=== PATIENT | female | born 1950 | race Two or more races ===

== ENCOUNTER 2021-02-23 20:23 | Inpatient (IN) | payer MEDICARE, OTHER ==
[~2021-02-23] VITALS: Ht 160 cm; Wt 60.3 kg
--- NOTE | 2021-02-23 20:39 | NUR ---
pt bibra c/o generalized weakness x yesterday and right arm tingling. Pt aaox4 breathing evenly and unlabored. MD at bedside. Pt attached to monitor and pox. Pt skin warm and dry, neuro checks intact.Pt given blanket and call light. Will continue to monitor.
--- NOTE | 2021-02-23 20:40 | NUR ---
xray at bedside
--- NOTE | 2021-02-23 20:41 | NUR ---
SUSAN: [phone]
--- NOTE | 2021-02-23 20:42 | NUR ---
Note undone in EDM - 02/23/21 at 2114 by DA pt bibra c/o generalized weakness x yesterday and right arm tingling. Pt aaox4 breathing evenly and unlabored. MD at bedside. Pt attached to monitor and pox. Pt skin warm and dry, neuro checks intact.Pt given blanket and call light. Will continue to monitor.
--- NOTE | 2021-02-23 20:55 | NUR ---
lab at bedside
[2021-02-23] MEDS ORDERED: ONDANSETRON HCL/PF 4 MG/2 ML VIAL IVP ONE (21:00)
[2021-02-23] MEDS ORDERED: MORPHINE SULFATE INJ 2 MG/ML DISP.SYRIN IV ONE (21:00)
[2021-02-23] MEDS ORDERED: IV NS 0.9% 1,000 ML BAG IV ONE (21:00)
[2021-02-23] MEDS ORDERED: MORPHINE SULFATE INJ 2 MG/ML DISP.SYRIN ONE (21:01)
[2021-02-23] MEDS ORDERED: ONDANSETRON HCL/PF 4 MG/2 ML VIAL ONE (21:01)
--- NOTE | 2021-02-23 21:07 | NUR ---
taken to radiology
[2021-02-23 21:10] LABS: BASOPHILS % (AUTO) 0.9 % (0.0-2.0); EOSINOPHILS % (AUTO) 1.8 % (0.0-6.0); HEMATOCRIT 41 % (33-45); HEMOGLOBIN 13.8 g/dL (11.5-14.8); LYMPHOCYTES % (AUTO) 45.6 % (20.0-44.0); MEAN CORPUSCULAR HGB CONC 34 g/dl (31.0-36.0); MEAN CORPUSCULAR VOLUME 87 fL (82-100); MONOCYTES # (AUTO) 0.5 K/uL (0.1-1.30); MONOCYTES % (AUTO) 10.4 % (2.0-12.0); NEUTROPHILS # (AUTO) 1.8 K/uL (1.8-8.9); NEUTROPHILS % (AUTO) 41.3 % (43.0-81.0); PLATELET COUNT (AUTO) 264 K/uL (150-450); RED BLOOD CELL COUNT(AUTO) 4.66 MIL/uL (4.0-5.2); WHITE BLOOD COUNT (AUTO) 4.4 K/uL (4.3-11.0)
[2021-02-23 21:23] LABS: ALBUMIN 3.6 g/dL (3.4-5.0); BILIRUBIN,DIRECT 0.1 mg/dL (0.0-0.2); BILIRUBIN,TOTAL 0.3 mg/dL (0.2-1.0); TOTAL PROTEIN, SERUM 8.1 g/dL (6.4-8.2)
[2021-02-23 21:32] LABS: CALCIUM, SERUM 8.7 mg/dL (8.5-10.1); CARBON DIOXIDE 26 mmol/L (21-32); CHLORIDE 103 mmol/L (98-107); CREATININE 0.8 mg/dL (0.6-1.3); GLUCOSE 123 mg/dL (74-106); POTASSIUM 3.9 mmol/L (3.5-5.1); SODIUM SERUM 142 mmol/L (136-145); UREA NITROGEN, BLOOD 15 mg/dL (7-18)
[2021-02-23] MEDS ORDERED: ASPIRIN EC 81 MG TABLET.DR PO ONE ×2 (22:00→22:17)
[2021-02-23] MEDS ORDERED: ONDANSETRON HCL/PF 4 MG/2 ML VIAL IVP PRN (22:30)
[2021-02-23] MEDS ORDERED: ACETAMINOPHEN 325 MG TABLET PO PRN (22:30)
[2021-02-23 23:32] LABS: CALCIUM, SERUM 7.9 mg/dL (8.5-10.1); CREATININE 0.8 mg/dL (0.6-1.3); POTASSIUM 3.9 mmol/L (3.5-5.1)
[2021-02-23 23:44] LABS: ALBUMIN 3.3 g/dL (3.4-5.0); BILIRUBIN,TOTAL 0.2 mg/dL (0.2-1.0); TOTAL PROTEIN, SERUM 7.2 g/dL (6.4-8.2)
[2021-02-23 23:45] LABS: THYROID STIMULATING HORMONE 3.399 uIU/mL (0.358-3.74)
--- NOTE | 2021-02-23 23:58 | NUR ---
TELE 304-1
--- NOTE | 2021-02-24 00:48 | NUR ---
gave report to LATESHA Charles for addi
[2021-02-24 01:00] VITALS: BP 144/87
--- NOTE | 2021-02-24 01:15 | NUR ---
DREDGE DECKHANDMOBILE THERAPIST NOTE PATIENT ALERT/ORIENTED X 4, PT ABLE TO MAKE NEEDS KNOWN, PRIMARILY IRANIAN SPEAKING BUT UNDERSTANDS/SPEAKING SOME CITIZEN OF [place]. PATIENT STABLE ON RA, NO S/S OF DISTRESS OR SOB NOTED, BREATHING EVEN AND UNLABORED. LEFT AC #20G INTACT AND FLUSHING WELL. PATIENT DENIES CHEST PAIN AND LEFT SIDED TINGLING AT THIS TIME. PATIENT BELONGINGS CHARTED. ORIENTED PATIENT TO ROOM AND HOW TO USE CALL LIGHT. SAFETY MEASURES IN PLACE: CALL LIGHT WITHIN REACH, SIDE RAILS UP X 2, BED LOCKED IN LOW POSITION, BED ALARM ON. WILL CONTINUE TO MONITOR PATIENT
[2021-02-24] MEDS: ATORVASTATIN 10 MG TABLET PO SCH ×2 (02:22→22:15)
[2021-02-24] MEDS: ENOXAPARIN SODIUM 40 MG/0.4 ML DISP.SYRIN SQ SCH ×2 (02:23→22:21)
[2021-02-24 04:00] VITALS: BP 130/79
--- NOTE | 2021-02-24 06:24 | NUR ---
WEB SEARCH EVALUATOR CLOSING NOTE PATIENT SLEEPING IN BED, APPEARS COMFORTABLE AND NOT IN ANY DISTRESS. NO SIGNIFICANT CHANGES THROUGHOUT SHIFT. PT STABLE ON RA, NO S/S OF DISTRESS OR SOB NOTED, BREATHING EVEN AND UNLABORED. PT ON EXTERNAL METALIZING MACHINE OPERATOR READING SINUS RHYTHM, HR: 70. SAFETY MEASURES IN PLACE: CALL LIGHT WITHIN REACH, SIDE RAILS UP X 2, BED LOCKED IN LOW POSITION, BED ALARM ON. WILL ENDORSE TO DAY SHIFT NURSE FOR CONTINUITY OF CARE
[2021-02-24 06:48] LABS: BASOPHILS % (AUTO) 0.7 % (0.0-2.0); EOSINOPHILS % (AUTO) 2.1 % (0.0-6.0); HEMATOCRIT 37 % (33-45); HEMOGLOBIN 12.5 g/dL (11.5-14.8); LYMPHOCYTES # (AUTO) 1.6 K/uL (0.8-4.8); LYMPHOCYTES % (AUTO) 48.7 % (20.0-44.0); MEAN CORPUSCULAR HGB CONC 34 g/dl (31.0-36.0); MEAN CORPUSCULAR VOLUME 88 fL (82-100); MONOCYTES # (AUTO) 0.4 K/uL (0.1-1.30); MONOCYTES % (AUTO) 11.4 % (2.0-12.0); NEUTROPHILS # (AUTO) 1.2 K/uL (1.8-8.9); NEUTROPHILS % (AUTO) 37.1 % (43.0-81.0); PLATELET COUNT (AUTO) 246 K/uL (150-450); RED BLOOD CELL COUNT(AUTO) 4.23 MIL/uL (4.0-5.2); WHITE BLOOD COUNT (AUTO) 3.3 K/uL (4.3-11.0)
--- NOTE | 2021-02-24 07:20 | NUR ---
ENTRY REP OPENING NOTES RECEIVED PATIENT IN BED, AWAKE, A/O X4. PATIENT ON ROOM AIR; BREATHING EVEN AND UNLABORED; NO SOB PRESENT. CURRENT TELE MONITOR WITH A READING OF SR 92. COMPLAINING OF HEADACHE 5 OUT OF 10. RAC IV ACCESS PRESENT AND INTACT; SL. SAFETY PRECAUTIONS IN PLACE; BED IN LOW POSITION AND LOCKED, RAILS UP X2, CALL LIGHT WITHIN REACH. WILL CONTINUE TO MONITOR PATIENT.
[2021-02-24 07:29] LABS: CALCIUM, SERUM 8.3 mg/dL (8.5-10.1); CREATININE 0.6 mg/dL (0.6-1.3); MAGNESIUM 2.2 mg/dL (1.8-2.4); PHOSPHORUS 3.5 mg/dL (2.5-4.9); POTASSIUM 3.9 mmol/L (3.5-5.1)
[2021-02-24 08:00] VITALS: BP 150/76
[2021-02-24] MEDS: ASPIRIN 81 MG TAB.CHEW PO SCH (08:35)
[2021-02-24] MEDS ORDERED: ERGO500093 PO (10:01)
[2021-02-24] MEDS ORDERED: ENAL10TA39 PO (10:01)
[2021-02-24] MEDS ORDERED: LINA145C PO (10:01)
[2021-02-24] MEDS ORDERED: ATOR40TA PO (10:01)
[2021-02-24] MEDS ORDERED: EZET10TA16 PO (10:01)
[2021-02-24] MEDS ORDERED: AMLO-213 PO (10:01)
[2021-02-24] MEDS ORDERED: CALC500T52 PO (10:01)
[2021-02-24] MEDS ORDERED: CARV6.252 PO (10:01)
[2021-02-24] MEDS ORDERED: ALEN70TA80 PO (10:01)
[2021-02-24] MEDS ORDERED: IBUP-1953 PO (10:01)
[2021-02-24] MEDS ORDERED: MECL-182 PO (10:01)
[2021-02-24] MEDS ORDERED: OMEP20CA15 PO (10:01)
[2021-02-24] MEDS ORDERED: UMEC1BLS IH (10:01)
[2021-02-24 16:00] VITALS: BP 140/86
--- NOTE | 2021-02-24 18:30 | NUR ---
HEALTHCARE CORPORATE ACCOUNT DIRECTOR CLOSING NOTES PATIENT REMAINS IN BED, AWAKE, A/O X4. PATIENT ON ROOM AIR; BREATHING EVEN AND UNLABORED; NO SOB PRESENT. CURRENT TELE MONITOR WITH A READING OF SR 87. COMPLAINING OF MILD GENERALIZED PAIN. RAC IV ACCESS PRESENT AND INTACT; SL. ALL NEEDS ATTENDED DURING THE DAY. SAFETY PRECAUTIONS IN PLACE; BED IN LOW POSITION AND LOCKED, RAILS UP X2, CALL LIGHT WITHIN REACH. WILL ENDORSE TO WAREHOUSE PICKER NURSE FOR JOHN.
--- NOTE | 2021-02-24 19:15 | NUR ---
TELE/RN OPENING NOTE RECEIVED PATIENT RESTING IN BED. AWAKE, ALERT AND ORIENTED X 4. ABLE TO MAKE NEEDS KNOWN. DENIES PAIN AT THIS TIME. CONTINUES ON ROOM AIR WITH NO S/SX OF RESPIRATORY DISTRESS NOTED. IV ACCESS TO RIGHT AC #20G INTACT, PATENT AND SALINE LOCKED. CONTINUES ON NIHSS WITH NO CHANGES NOTED. CONTINUES ON TELE MONITOR WITH CURRENT READING SR HR 75. CALL LIGHT WITHIN REACH. ASPIRATION, FALL ANDD SAFETY PRECAUTIONS MAINTAINED. WILL CONTINUE TO MONITOR.
[2021-02-24 20:00] VITALS: BP 137/80
[2021-02-24] MEDS ORDERED: ATORVASTATIN 10 MG TABLET ONE (22:14)
[2021-02-24] MEDS ORDERED: ENOXAPARIN SODIUM 40 MG/0.4 ML DISP.SYRIN SQ ONE (22:14)
[2021-02-25] VITALS: BP 109/86
--- NOTE | 2021-02-25 06:10 | NUR ---
TELE/RN CLOSING NOTE PATIENT CURRENTLY SLEEPING IN BED. ALERT AND ORIENTED X 4. ABLE TO MAKE NEEDS KNOWN. DENIES PAIN AT THIS TIME. CONTINUES ON ROOM AIR WITH NO S/SX OF RESPIRATORY DISTRESS NOTED. IV ACCESS TO RIGHT AC #20G INTACT, PATENT AND SALINE LOCKED. CONTINUES ON NIHSS WITH NO CHANGES NOTED. CONTINUES ON TELE MONITOR WITH CURRENT READING SR HR 77. CALL LIGHT WITHIN REACH. ASPIRATION, FALL AND SAFETY PRECAUTIONS MAINTAINED. WILL ENDORSE PLAN OF CARE TO ONCOMING SHIFT.
--- NOTE | 2021-02-25 07:30 | NUR ---
FOREST AIDE OPENING NOTES RECEIVED PATIENT IN BED AWAKE AND VERBALLY RESPONSIVE,NO S/SX OF DISTRESS,DENIES PAIN AND DISCOMFORT.CONT ON TELE MONITORING, IN ROOM AIR.CONTINENT OF BOTH BOWEL AND BLADDER , ABLE TO AMBULATE TO THE BATHROOM WITH STANDBY ASSIST.NOTED WITH GOOD APPETITE DURING BREAKFAST.WILL CONTINUE TO MONITOR
[2021-02-25 08:00] VITALS: BP 145/85
[2021-02-25] MEDS ORDERED: MECLIZINE HCL 12.5 MG TABLET PO PRN (08:30)
[2021-02-25] MEDS: ASPIRIN 81 MG TAB.CHEW PO SCH (09:00)
[2021-02-25] MEDS ORDERED: IBUPROFEN 600 MG TABLET PO PRN (09:00)
[2021-02-25] MEDS ORDERED: CALCIUM CARBONATE (1250) 500 MG TABLET PO SCH (09:00)
[2021-02-25] MEDS ORDERED: CARVEDILOL 6.25 MG TABLET PO SCH (09:00)
[2021-02-25] MEDS ORDERED: ENALAPRIL MALEATE (10 MG) 10 MG TABLET PO SCH (09:00)
[2021-02-25] MEDS ORDERED: EZETIMIBE 10 MG TABLET PO SCH (09:00)
[2021-02-25] MEDS ORDERED: AMLODIPINE BESYLATE 10 MG TABLET PO SCH (09:00)
[2021-02-25] MEDS ORDERED: AMOX/CLAVULANATE 875 MG TABLET PO SCH (09:00)
[2021-02-25] MEDS ORDERED: ATORVASTATIN 40 MG TABLET PO SCH (09:00)
[2021-02-25 09:17] VITALS: BP 147/85
--- NOTE | 2021-02-25 14:40 | NUR ---
SS Consult: SS consult requested for stroke. Pt. is an [place] 71-year-old female in the [place]. Per EMR, pt. was brought in by the ambulance from home after she began to feel: body pain, headache, and high blood pressure . Pt. stated she has not been feeling well for the last two days. During assessment, pt. is in bed laying down, oriented x4, and alert. The pt. appears well-groomed, Pt. was capable of following directions and made appropriate eye contact during interview. YVES explored pt.s mental health and drug abuse. Hx. Pt. reported no Hx of mental health, substance abuse, SI/HI and denies hallucinations. SW explored pt.s living situation and support system. Pt. stated that she lives alone, and her brother is her main support system. Pt. stated she is independent with her ADLs, but her brother also helps. Pt. stated that she is ambulatory but uses a cane when walking. YVES explored pt.s financial situation. Pt. is financially stable and receives social security as an income. DC Plan: Per pt. she would like to return home [[address] [facility] [address]; [phone]] once ready for DC. Per pt., she is not able to get in contact with brother, for transportation purposes as he has her cellphone. Pt. stated that she does not memorize his phone number. YVES tried calling pt.s cellphone [[phone]], but no answer. YVES spoke with Case Management and they mentioned pt.s niece is picking her up from hospital (contact information unknown). The pt. scored a 3 (Non-minimal) on the Post Stroke Depression Scale. No psych consult needed at this time. YVES provided Stroke Empowerment resources and pt. accepted. Pt is getting discharged and picked up by niece.
--- NOTE | 2021-02-25 14:55 | NUR ---
RN NOTES PATIENT IS ALERT AND ORIENTED X4. PATIENT IS ON ROOM AIR. PATIENT IN NO APPARENT RESPIRATORY DISTRESS NOTED. NO COMPLAINED OF PAIN NOTED AT THIS TIME. SEEN AND EXAMINED BY MD WITH ORDERS MADE AND CARRIED OUT. ALL DUE MEDICATIONS WAS GIVEN. DISCHARGED INSTRUCTIONS WAS GIVEN, PATIENT VERBALIZED UNDERSTANDING. PATIENT LEFT THE HOSPITAL IN MEDICALLY STABLE CONDITION, SIGN PAINTER BY ANA GIL VIA PRIVATE CAR.
[2021-02-26] MEDS ORDERED: PANTOPRAZOLE 40 MG TABLET.DR PO SCH (07:30)
[2021-02-28] MEDS ORDERED: ALENDRONATE 70 MG TABLET PO SCH (06:30)
[2021-02-28] MEDS ORDERED: ERGOCALCIFEROL (VITAMIN D 2) 50,000 UNIT CAPSULE PO SCH (07:00)
== END 2021-02-25 16:15 | disposition home or self-care (01) | DRG 153 ==
LOC: ER 20:25 → TELE 02-24 00:03 → MED 02-25 10:19
PROVIDERS: ADMIT Nurse Practitioner Acute Care; ATTEND Internal Medicine
DX: J01.10 Acute frontal sinusitis, unspecified (principal); E44.1 Mild protein-calorie malnutrition; Z20.822 Contact with and (suspected) exposure to COVID-19; I10 Essential (primary) hypertension; Z79.83 Long term (current) use of bisphosphonates; Z79.899 Other long term (current) drug therapy; J01.20 Acute ethmoidal sinusitis, unspecified
CPT/HCPCS: 36415; 70450-TC; 71045-TC; 80048-TC; 80053-TC; 80061-TC; 80076-TC; 83690-TC; 83735-TC; 83880; 84100-TC; 84443-TC; 84484-TC; 85025-TC; 85652-TC; 85730-TC; 87081-TC; 92526; 92611-TC; 93307-TC; 93880-TC; 93970-TC; 97116-TC; 97530-TC; C9803; G0378; J1650; J2270; J2405; J7030

== ENCOUNTER 2024-01-16 11:48 | Emergency (ER) | payer MEDICARE, OTHER ==
[~2024-01-16] VITALS: Ht 165.1 cm; Wt 54.4 kg
[~2024-01-16 11:48] MED LIST: ALEN70TA80 PO; AMLO-213 PO; ATOR40TA PO; CALC500T52 PO; CARV6.252 PO; ENAL10TA39 PO; ERGO500093 PO; EZET10TA16 PO; IBUP-1953 PO; LINA145C PO; MECL-182 PO; OMEP20CA15 PO; UMEC1BLS IH
[2024-01-16] MEDS ORDERED: CAPS42.513 TP (13:38)
[2024-01-16] MEDS ORDERED: IBUP-1957 PO (13:38)
[2024-01-16 13:46] VITALS: BP 138/78; TEMP 98.6; O2SAT 98
== END 2024-01-16 13:45 | disposition home or self-care (01) ==
LOC: ER 11:57
DX: S20.302A Unspecified superficial injuries of left front wall of thorax, initial encounter (principal); R07.81 Pleurodynia; I10 Essential (primary) hypertension; Z86.79 Personal history of other diseases of the circulatory system; X58.XXXA Exposure to other specified factors, initial encounter; Y93.89 Activity, other specified; Y92.89 Other specified places as the place of occurrence of the external cause; Y99.8 Other external cause status
CPT/HCPCS: 71100-TC